=== PATIENT | female | born 1975 | race Two or more races ===

== ENCOUNTER 2022-01-12 13:15 | Inpatient (IN) | payer SELFPAY ==
[2022-01-12] MEDS ORDERED: SODIUM CHLORIDE 1,000 ML IV STA (14:17)
[2022-01-12] MEDS ORDERED: METOCLOPRAMIDE HCL INJECTION 10 MG/2 ML VIAL IVPB ONE (14:17)
[2022-01-12] MEDS ORDERED: ACETAMINOPHEN 1000 MG/100 ML BAG IVPB ONE (14:17)
[2022-01-12] MEDS ORDERED: METOCLOPRAMIDE HCL INJECTION 10 MG/2 ML VIAL ONE (15:31)
[2022-01-12 16:52] LABS: BASO % 0.5 % (0-2.0); EOS % 0.4 % (0-4.5); HEMATOCRIT 37.9 % (32.4-45.2); HEMOGLOBIN 12.2 GM/dL (10.7-15.3); LYMPH % 24.9 % (8-40); MCH 27.5 pg (25.7-33.7); MCHC 32.2 g/dl (32.0-36.0); MEAN CELL VOLUME 85.4 fl (80-96); MEAN PLT VOLUME 8.3 fl (7.5-11.1); MONO % 4.6 % (3.8-10.2); NEUT % 69.6 % (42.8-82.8); PLATELET COUNT 283 10^3/uL (134-434); RBC 4.43 M/mm3 (3.60-5.2); RDW 13.8 % (11.6-15.6); WHITE BLOOD COUNT 9.2 K/mm3 (4.0-10.0)
[2022-01-12 16:59] LABS: INR 0.91 (0.83-1.09); PROTHROMBIN TIME (PATIENT) 10.5 SEC (9.7-13.0)
[2022-01-12 17:12] LABS: ALBUMIN 3.5 g/dl (3.4-5.0); BLOOD UREA NITROGEN 12.4 mg/dL (7-18)
[2022-01-12 17:15] LABS: CREATININE 0.6 mg/dL (0.55-1.3)
[2022-01-12 17:16] LABS: BILIRUBIN,TOTAL 0.3 mg/dL (0.2-1); TOT PROT 7.9 g/dl (6.4-8.2)
[2022-01-12 17:32] LABS: EPI CELLS 12 /uL (0-25.1); HYALINE CASTS 1 /uL (0-3.1); PH,URINE 5.5 (5.0-8.0); URINE APPEARANCE CLEAR; URINE BACTERIA 1166 /uL (0-1359); URINE BILIRUBIN NEGATIVE (NEGATIVE); URINE COLOR YELLOW; URINE GLUCOSE (UA) NEGATIVE (NEGATIVE); URINE KETONE NEGATIVE (NEGATIVE); URINE LEUK ESTERASE NEGATIVE (NEGATIVE); URINE NITRITE NEGATIVE (NEGATIVE); URINE PROTEIN 1+ (NEGATIVE); URINE RBC 5 /uL (0-23.9); URINE UROBILINOGEN 0.2 mg/dL (0.2-1.0); URINE WBC 11 /uL (0-25.8)
[2022-01-12] MEDS ORDERED: VALPROATE SODIUM 500 MG/5 ML VIAL IVPB ONE (20:21)
[2022-01-12] MEDS ORDERED: CEFTRIAXONE 1,000 MG in DEXTROSE 5%-WATER - 50 ML IVPB ONE (20:52)
[2022-01-12] MEDS ORDERED: VALPROATE SODIUM 500 MG/5 ML VIAL ONE (21:29)
[2022-01-12] MEDS ORDERED: CEFTRIAXONE 1 GM/50 ML BAG ONE (21:29)
[2022-01-13 06:18] LABS: BASO % 0.5 % (0-2.0); EOS % 0.8 % (0-4.5); HEMOGLOBIN 10.7 GM/dL (10.7-15.3); LYMPH % 38.8 % (8-40); MCH 27.6 pg (25.7-33.7); MCHC 32.3 g/dl (32.0-36.0); MEAN CELL VOLUME 85.5 fl (80-96); MEAN PLT VOLUME 7.7 fl (7.5-11.1); MONO % 5.5 % (3.8-10.2); NEUT % 54.4 % (42.8-82.8); PLATELET COUNT 221 10^3/uL (134-434); RBC 3.86 M/mm3 (3.60-5.2); RDW 13.5 % (11.6-15.6); WHITE BLOOD COUNT 7.9 K/mm3 (4.0-10.0)
[2022-01-13 06:38] LABS: BLOOD UREA NITROGEN 10.8 mg/dL (7-18); CALCIUM 8.2 mg/dL (8.5-10.1)
[2022-01-13 06:39] LABS: MAGNESIUM 1.5 mg/dL (1.8-2.4)
[2022-01-13 06:41] LABS: CREATININE 0.5 mg/dL (0.55-1.3); PHOSPHOROUS 3.2 mg/dL (2.5-4.9)
[2022-01-13 06:43] LABS: BILIRUBIN,TOTAL 0.2 mg/dL (0.2-1); TOT PROT 6.8 g/dl (6.4-8.2)
[2022-01-13] MEDS: INSULIN SLIDING SCALE (NOVOLOG) 1 VIAL SQ SCH ×4 (07:06→22:31)
[2022-01-13] MEDS ORDERED: LEVOTHYROXINE NA 25 MCG TABLET (FP) ONE (07:07)
[2022-01-13] MEDS: LEVOTHYROXINE NA 100 MCG TABLET (FP) PO SCH (07:09)
[2022-01-13] MEDS ORDERED: MAGNESIUM SULFATE IN WATER 2 GM/50 ML IVPB IVPB ONE (07:33)
[2022-01-13] MEDS ORDERED: MAGNESIUM 2GM/50ML STERILE WATER IVPB IVPB ONE (07:45)
[2022-01-13] MEDS ORDERED: MAGNESIUM SULF 50% (8.12 MEQ/2 ML-1 GM VIAL) IVPB ONE (07:45)
[2022-01-13] MEDS ORDERED: LISINOPRIL 5 MG TABLET ONE (08:38)
[2022-01-13] MEDS ORDERED: ASPIRIN COATED 81 MG TABLET.EC ONE (08:38)
[2022-01-13] MEDS: LISINOPRIL 5 MG TABLET PO SCH (09:16)
[2022-01-13] MEDS: ASPIRIN COATED 81 MG TABLET.EC PO SCH (09:16)
[2022-01-13] MEDS: DIVALPROEX SODIUM 500 MG TABLET E.C. PO SCH (09:34)
[2022-01-13] MEDS ORDERED: ENOXAPARIN NA (PORCINE) 40 MG/0.4 ML DISP.SYRIN SQ SCH (10:00)
[2022-01-13 11:10] LABS: RETICULOCYTES 1.14 % (0.5-1.5)
[2022-01-13] MEDS ORDERED: GEMFIBROZIL 600 MG TABLET (FP) PO SCH (16:30)
[2022-01-13 18:54] VITALS: BMI 31.8
[2022-01-13] MEDS: CLOPIDOGREL BISULFATE 75 MG TABLET (FP) PO SCH (19:00)
[2022-01-13] MEDS ORDERED: ATORVASTATIN CA 40 MG TABLET (FP) PO SCH ×2 (22:00)
[2022-01-13] MEDS: ATORVASTATIN CA 80 MG TABLET (FP) PO SCH (22:31)
[2022-01-13] MEDS: PRAMIPEXOLE DIHYDROCHLORIDE 0.25 MG TABLET PO SCH (22:31)
[2022-01-14] MEDS: LEVOTHYROXINE NA 100 MCG TABLET (FP) PO SCH (06:16)
[2022-01-14 07:39] LABS: BASO % 0.4 % (0-2.0); EOS % 1.2 % (0-4.5); HEMATOCRIT 35.8 % (32.4-45.2); HEMOGLOBIN 11.7 GM/dL (10.7-15.3); LYMPH % 40.7 % (8-40); MCH 27.9 pg (25.7-33.7); MCHC 32.8 g/dl (32.0-36.0); MEAN CELL VOLUME 85.1 fl (80-96); MEAN PLT VOLUME 7.8 fl (7.5-11.1); MONO % 5.9 % (3.8-10.2); NEUT % 51.8 % (42.8-82.8); PLATELET COUNT 253 10^3/uL (134-434); RDW 13.4 % (11.6-15.6); WHITE BLOOD COUNT 8.4 K/mm3 (4.0-10.0)
[2022-01-14 07:56] LABS: BLOOD UREA NITROGEN 14.8 mg/dL (7-18); MAGNESIUM 2.5 mg/dL (1.8-2.4)
[2022-01-14 08:00] LABS: CREATININE 0.6 mg/dL (0.55-1.3); PHOSPHOROUS 4.9 mg/dL (2.5-4.9)
[2022-01-14] MEDS: INSULIN SLIDING SCALE (NOVOLOG) 1 VIAL SQ SCH ×3 (08:51→16:54)
[2022-01-14] MEDS: CLOPIDOGREL BISULFATE 75 MG TABLET (FP) PO SCH (10:23)
[2022-01-14] MEDS: ASPIRIN COATED 81 MG TABLET.EC PO SCH (10:23)
[2022-01-14] MEDS: LISINOPRIL 5 MG TABLET PO SCH (10:23)
[2022-01-14] MEDS: DIVALPROEX SODIUM 500 MG TABLET E.C. PO SCH (11:09)
[2022-01-14] MEDS: PRAMIPEXOLE DIHYDROCHLORIDE 0.25 MG TABLET PO SCH (22:27)
[2022-01-14] MEDS: ACETAMINOPHEN 325 MG TABLET (FP) PO PRN (22:27)
[2022-01-14] MEDS: ATORVASTATIN CA 80 MG TABLET (FP) PO SCH (22:30)
[2022-01-15] MEDS: LEVOTHYROXINE NA 100 MCG TABLET (FP) PO SCH (06:03)
[2022-01-15] MEDS: INSULIN SLIDING SCALE (NOVOLOG) 1 VIAL SQ SCH ×5 (06:13→21:50)
[2022-01-15 07:11] LABS: BASO % 0.6 % (0-2.0); EOS % 1.3 % (0-4.5); HEMATOCRIT 34.3 % (32.4-45.2); HEMOGLOBIN 11.6 GM/dL (10.7-15.3); LYMPH % 36.9 % (8-40); MCH 28.8 pg (25.7-33.7); MCHC 33.9 g/dl (32.0-36.0); MEAN CELL VOLUME 84.8 fl (80-96); MEAN PLT VOLUME 7.3 fl (7.5-11.1); MONO % 5.4 % (3.8-10.2); NEUT % 55.8 % (42.8-82.8); PLATELET COUNT 235 10^3/uL (134-434); RBC 4.05 M/mm3 (3.60-5.2); RDW 13.5 % (11.6-15.6); WHITE BLOOD COUNT 7.8 K/mm3 (4.0-10.0)
[2022-01-15 07:26] LABS: CALCIUM 8.8 mg/dL (8.5-10.1)
[2022-01-15 07:31] LABS: CREATININE 0.5 mg/dL (0.55-1.3)
[2022-01-15] MEDS: LISINOPRIL 5 MG TABLET PO SCH (09:54)
[2022-01-15] MEDS: ASPIRIN COATED 81 MG TABLET.EC PO SCH (09:55)
[2022-01-15] MEDS: DIVALPROEX SODIUM 500 MG TABLET E.C. PO SCH (09:55)
[2022-01-15] MEDS: CLOPIDOGREL BISULFATE 75 MG TABLET (FP) PO SCH (09:55)
[2022-01-15] MEDS: ACETAMINOPHEN 325 MG TABLET (FP) PO PRN (15:37)
[2022-01-15] MEDS: PRAMIPEXOLE DIHYDROCHLORIDE 0.25 MG TABLET PO SCH (21:50)
[2022-01-15] MEDS: ATORVASTATIN CA 80 MG TABLET (FP) PO SCH (21:50)
[2022-01-16] MEDS: LEVOTHYROXINE NA 100 MCG TABLET (FP) PO SCH (06:15)
[2022-01-16] MEDS: INSULIN SLIDING SCALE (NOVOLOG) 1 VIAL SQ SCH ×4 (06:16→21:55)
[2022-01-16] MEDS: CLOPIDOGREL BISULFATE 75 MG TABLET (FP) PO SCH (10:03)
[2022-01-16] MEDS: ASPIRIN COATED 81 MG TABLET.EC PO SCH (10:03)
[2022-01-16] MEDS: DIVALPROEX SODIUM 500 MG TABLET E.C. PO SCH (10:03)
[2022-01-16] MEDS: LISINOPRIL 5 MG TABLET PO SCH (10:03)
[2022-01-16 13:08] LABS: BASO % 0.5 % (0-2.0); EOS % 1.3 % (0-4.5); HEMATOCRIT 35.4 % (32.4-45.2); LYMPH % 28.8 % (8-40); MCH 28.7 pg (25.7-33.7); MCHC 33.8 g/dl (32.0-36.0); MEAN PLT VOLUME 7.6 fl (7.5-11.1); MONO % 6.6 % (3.8-10.2); NEUT % 62.8 % (42.8-82.8); PLATELET COUNT 258 10^3/uL (134-434); RBC 4.16 M/mm3 (3.60-5.2); RDW 13.1 % (11.6-15.6)
[2022-01-16 13:20] LABS: CALCIUM 9.8 mg/dL (8.5-10.1)
[2022-01-16 13:21] LABS: BLOOD UREA NITROGEN 14.6 mg/dL (7-18)
[2022-01-16 13:24] LABS: CREATININE 0.5 mg/dL (0.55-1.3)
[2022-01-16] MEDS: PRAMIPEXOLE DIHYDROCHLORIDE 0.25 MG TABLET PO SCH (21:47)
[2022-01-16] MEDS: ACETAMINOPHEN 325 MG TABLET (FP) PO PRN (21:48)
[2022-01-16] MEDS: ATORVASTATIN CA 80 MG TABLET (FP) PO SCH (21:48)
[2022-01-16] MEDS: MELATONIN 5 MG TABLETS PO PRN (21:48)
[2022-01-17] MEDS: LEVOTHYROXINE NA 100 MCG TABLET (FP) PO SCH (06:08)
[2022-01-17] MEDS: INSULIN SLIDING SCALE (NOVOLOG) 1 VIAL SQ SCH ×4 (06:09→22:07)
[2022-01-17] MEDS: DIVALPROEX SODIUM 500 MG TABLET E.C. PO SCH (10:27)
[2022-01-17] MEDS: ASPIRIN COATED 81 MG TABLET.EC PO SCH (10:27)
[2022-01-17] MEDS: LISINOPRIL 5 MG TABLET PO SCH (10:27)
[2022-01-17] MEDS: CLOPIDOGREL BISULFATE 75 MG TABLET (FP) PO SCH (10:28)
[2022-01-17] MEDS: ATORVASTATIN CA 80 MG TABLET (FP) PO SCH (22:04)
[2022-01-17] MEDS: PRAMIPEXOLE DIHYDROCHLORIDE 0.25 MG TABLET PO SCH (22:04)
[2022-01-18] MEDS: INSULIN SLIDING SCALE (NOVOLOG) 1 VIAL SQ SCH ×4 (06:03→21:28)
[2022-01-18] MEDS: LEVOTHYROXINE NA 100 MCG TABLET (FP) PO SCH (06:05)
[2022-01-18 07:22] LABS: BASO % 0.5 % (0-2.0); EOS % 1.7 % (0-4.5); HEMATOCRIT 32.8 % (32.4-45.2); HEMOGLOBIN 10.8 GM/dL (10.7-15.3); LYMPH % 31.3 % (8-40); MCHC 32.8 g/dl (32.0-36.0); MEAN CELL VOLUME 85.3 fl (80-96); MONO % 5.8 % (3.8-10.2); NEUT % 60.7 % (42.8-82.8); PLATELET COUNT 241 10^3/uL (134-434); RBC 3.84 M/mm3 (3.60-5.2); RDW 13.2 % (11.6-15.6); WHITE BLOOD COUNT 8.3 K/mm3 (4.0-10.0)
[2022-01-18 07:42] LABS: CALCIUM 8.8 mg/dL (8.5-10.1)
[2022-01-18 07:43] LABS: BLOOD UREA NITROGEN 15.2 mg/dL (7-18); MAGNESIUM 1.9 mg/dL (1.8-2.4)
[2022-01-18 07:46] LABS: CREATININE 0.5 mg/dL (0.55-1.3)
[2022-01-18] MEDS: DIVALPROEX SODIUM 500 MG TABLET E.C. PO SCH (09:18)
[2022-01-18] MEDS: ASPIRIN COATED 81 MG TABLET.EC PO SCH (09:18)
[2022-01-18] MEDS: CLOPIDOGREL BISULFATE 75 MG TABLET (FP) PO SCH (09:19)
[2022-01-18] MEDS: LISINOPRIL 5 MG TABLET PO SCH (09:19)
[2022-01-18] MEDS: predniSONE 20 MG TABLET (UD) PO SCH (15:55)
[2022-01-18] MEDS: ATORVASTATIN CA 80 MG TABLET (FP) PO SCH (21:23)
[2022-01-18] MEDS: PRAMIPEXOLE DIHYDROCHLORIDE 0.25 MG TABLET PO SCH (21:23)
[2022-01-18] MEDS: PANTOPRAZOLE 40 MG TABLET PO SCH (21:23)
[2022-01-19] MEDS: LEVOTHYROXINE NA 100 MCG TABLET (FP) PO SCH (06:29)
[2022-01-19] MEDS: INSULIN SLIDING SCALE (NOVOLOG) 1 VIAL SQ SCH ×4 (06:32→21:41)
[2022-01-19 07:39] LABS: BASO % 0.5 % (0-2.0); HEMATOCRIT 31.6 % (32.4-45.2); HEMOGLOBIN 10.6 GM/dL (10.7-15.3); LYMPH % 12.7 % (8-40); MCH 28.4 pg (25.7-33.7); MCHC 33.7 g/dl (32.0-36.0); MEAN CELL VOLUME 84.4 fl (80-96); MEAN PLT VOLUME 8.3 fl (7.5-11.1); MONO % 3.3 % (3.8-10.2); NEUT % 83.5 % (42.8-82.8); PLATELET COUNT 246 10^3/uL (134-434); RBC 3.74 M/mm3 (3.60-5.2); RDW 13.2 % (11.6-15.6); WHITE BLOOD COUNT 10.2 K/mm3 (4.0-10.0)
[2022-01-19 07:50] LABS: BLOOD UREA NITROGEN 16.4 mg/dL (7-18); CALCIUM 8.1 mg/dL (8.5-10.1)
[2022-01-19 07:53] LABS: CREATININE 0.6 mg/dL (0.55-1.3)
[2022-01-19] MEDS: predniSONE 20 MG TABLET (UD) PO SCH (09:53)
[2022-01-19] MEDS: DIVALPROEX SODIUM 500 MG TABLET E.C. PO SCH (09:53)
[2022-01-19] MEDS: CLOPIDOGREL BISULFATE 75 MG TABLET (FP) PO SCH (09:54)
[2022-01-19] MEDS: PANTOPRAZOLE 40 MG TABLET PO SCH ×2 (09:54→21:35)
[2022-01-19] MEDS: ASPIRIN COATED 81 MG TABLET.EC PO SCH (09:54)
[2022-01-19] MEDS: LISINOPRIL 5 MG TABLET PO SCH (09:54)
[2022-01-19] MEDS ORDERED: LIDOCAINE HCL 1%, 10 MG/ML (20ML VIAL) ONE (13:09)
[2022-01-19] MEDS ORDERED: LIDOCAINE HCL 1%, 10 MG/ML (20ML VIAL) SQ ONE (13:55)
[2022-01-19] MEDS: ACETAMINOPHEN 325 MG TABLET (FP) PO PRN (20:02)
[2022-01-19] MEDS: PRAMIPEXOLE DIHYDROCHLORIDE 0.25 MG TABLET PO SCH (21:35)
[2022-01-19] MEDS: MELATONIN 5 MG TABLETS PO PRN (21:35)
[2022-01-19] MEDS: ATORVASTATIN CA 80 MG TABLET (FP) PO SCH (21:35)
[2022-01-20] MEDS: LEVOTHYROXINE NA 100 MCG TABLET (FP) PO SCH (06:23)
[2022-01-20] MEDS: INSULIN SLIDING SCALE (NOVOLOG) 1 VIAL SQ SCH ×2 (06:23→11:33)
[2022-01-20 07:44] LABS: BASO % 0.3 % (0-2.0); EOS % 0.1 % (0-4.5); HEMATOCRIT 30.5 % (32.4-45.2); HEMOGLOBIN 10.5 GM/dL (10.7-15.3); LYMPH % 19.2 % (8-40); MCH 28.7 pg (25.7-33.7); MCHC 34.3 g/dl (32.0-36.0); MEAN CELL VOLUME 83.8 fl (80-96); MEAN PLT VOLUME 7.8 fl (7.5-11.1); MONO % 5.6 % (3.8-10.2); NEUT % 74.8 % (42.8-82.8); PLATELET COUNT 249 10^3/uL (134-434); RBC 3.64 M/mm3 (3.60-5.2); RDW 13.7 % (11.6-15.6); WHITE BLOOD COUNT 11.6 K/mm3 (4.0-10.0)
[2022-01-20 08:03] LABS: CALCIUM 8.2 mg/dL (8.5-10.1)
[2022-01-20 08:04] LABS: BLOOD UREA NITROGEN 20.3 mg/dL (7-18)
[2022-01-20 08:06] LABS: CREATININE 0.6 mg/dL (0.55-1.3)
[2022-01-20] MEDS: PANTOPRAZOLE 40 MG TABLET PO SCH (10:52)
[2022-01-20] MEDS: DIVALPROEX SODIUM 500 MG TABLET E.C. PO SCH (10:52)
[2022-01-20] MEDS: ASPIRIN COATED 81 MG TABLET.EC PO SCH (10:52)
[2022-01-20] MEDS: LISINOPRIL 5 MG TABLET PO SCH (10:52)
[2022-01-20] MEDS: CLOPIDOGREL BISULFATE 75 MG TABLET (FP) PO SCH (10:52)
[2022-01-20 15:06] VITALS: BP 116/69; PULSE 86; TEMP 98.3
== END 2022-01-20 17:56 | disposition home or self-care (01) | DRG 46 ==
LOC: JER 13:15 → JERBED 21:31 → J4W 01-13 15:38
PROVIDERS: ADMIT Hospitalist; ATTEND Internal Medicine
PROC: 03BS3ZX Excision of Right Temporal Artery, Percutaneous Approach, Diagnostic (ICD-10-PCS; principal; 2022-01-19 14:00)
DX: I65.21 Occlusion and stenosis of right carotid artery (principal); Q24.8 Other specified congenital malformations of heart; I10 Essential (primary) hypertension; E03.9 Hypothyroidism, unspecified; G25.81 Restless legs syndrome; H53.2 Diplopia; I69.30 Unspecified sequelae of cerebral infarction; E11.9 Type 2 diabetes mellitus without complications; I11.0 Hypertensive heart disease with heart failure; I50.32 Chronic diastolic (congestive) heart failure; F41.9 Anxiety disorder, unspecified; R00.0 Tachycardia, unspecified; E78.5 Hyperlipidemia, unspecified; E66.9 Obesity, unspecified; Z68.31 Body mass index [BMI] 31.0-31.9, adult
CPT/HCPCS: 36415; 70450-TC; 70496-TC; 70498-TC; 70546-TC; 70548-TC; 80048; 80053; 80061; 81003; 82136; 82272; 82570; 82962; 83010; 83036; 83735; 83918; 84100; 84156; 84443; 84484; 85025; 85045; 85610; 85651; 86140; 87086; 88305-TC; 93005; 93010; 93306-TC; 93880-TC; 97116-GP; 97162-GP; 99285-25; A9579; C9803; Q9967; U0003; U0005

== ENCOUNTER 2022-12-08 07:12 | Emergency (ER) | payer SELFPAY ==
[2022-12-08 07:29] VITALS: BMI 28.3
[2022-12-08] MEDS ORDERED: METOCLOPRAMIDE HCL INJECTION 10 MG/2 ML VIAL IVPUSH ONE (07:50)
[2022-12-08] MEDS ORDERED: ACETAMINOPHEN 1000 MG/100 ML BAG IVPB ONE (07:50)
[2022-12-08] MEDS ORDERED: SODIUM CHLORIDE 0.9% 500 ML INFUS.BAG IV ONE (07:51)
[2022-12-08] MEDS ORDERED: METOCLOPRAMIDE HCL INJECTION 10 MG/2 ML VIAL ONE (08:17)
[2022-12-08] MEDS ORDERED: ACETAMINOPHEN INJECTION 100 ML IVPB ONE (08:17)
[2022-12-08 08:58] LABS: BASO % 0.3 % (0-2.0); EOS % 0.8 % (0-4.5); HEMATOCRIT 29.6 % (32.4-45.2); HEMOGLOBIN 9.7 GM/dL (10.7-15.3); LYMPH % 20.7 % (8-40); MCH 28.4 pg (25.7-33.7); MCHC 32.8 g/dl (32.0-36.0); MEAN CELL VOLUME 86.4 fl (80-96); MEAN PLT VOLUME 8.6 fl (7.5-11.1); MONO % 6.7 % (3.8-10.2); NEUT % 71.5 % (42.8-82.8); PLATELET COUNT 298 10^3/uL (134-434); RBC 3.42 M/mm3 (3.60-5.2); RDW 14.4 % (11.6-15.6); WHITE BLOOD COUNT 11.3 K/mm3 (4.0-10.0)
[2022-12-08 09:07] LABS: INR 0.95 (0.83-1.09); PROTHROMBIN TIME (PATIENT) 10.9 SEC (9.7-13.0)
[2022-12-08 09:10] LABS: ACTIVATED PTT 31.1 SECONDS (25.2-36.5)
[2022-12-08 09:27] LABS: BLOOD UREA NITROGEN 23.5 mg/dL (7-18); CALCIUM 8.3 mg/dL (8.5-10.1)
[2022-12-08 09:30] LABS: CREATININE 0.8 mg/dL (0.55-1.3)
[2022-12-08 09:32] LABS: BILIRUBIN,TOTAL 0.2 mg/dL (0.2-1); TOT PROT 6.5 g/dl (6.4-8.2)
[2022-12-08] MEDS ORDERED: LACTATED RINGERS SOLUTION 1000 ML INFUS.BAG IV ONE (09:56)
[2022-12-08] MEDS ORDERED: CLOPIDOGREL BISULFATE 75 MG TABLET (FP) PO ONE (09:56)
[2022-12-08] MEDS ORDERED: CLOPIDOGREL BISULFATE 75 MG TABLET (FP) ONE (10:36)
[2022-12-08] MEDS ORDERED: DIVALPROEX NA *ER* EXTEND REL 500 MG TABLET.SA (FP) PO ONE (11:19)
[2022-12-08] MEDS ORDERED: RIMEGEPANT SULFATE 75 MG TAB.RAPDIS SL ONE (11:24)
[2022-12-08 13:49] LABS: EPI CELLS 32 /uL (0-25.1); HYALINE CASTS 1 /uL (0-3.1); PH,URINE 6.5 (5.0-8.0); URINE APPEARANCE CLOUDY; URINE BACTERIA >9,000 /uL (0-1359); URINE BILIRUBIN NEGATIVE (NEGATIVE); URINE COLOR YELLOW; URINE GLUCOSE (UA) NEGATIVE (NEGATIVE); URINE KETONE NEGATIVE (NEGATIVE); URINE LEUK ESTERASE 2+ (NEGATIVE); URINE NITRITE POSITIVE (NEGATIVE); URINE PROTEIN NEGATIVE (NEGATIVE); URINE RBC 30 /uL (0-23.9); URINE UROBILINOGEN 0.2 mg/dL (0.2-1.0); URINE WBC 1141 /uL (0-25.8)
[2022-12-08] MEDS ORDERED: CEFTRIAXONE 1,000 MG in DEXTROSE 5%-WATER - 50 ML IVPB ONE (14:14)
[2022-12-08] MEDS ORDERED: CEFTRIAXONE 2 GM/100 ML BAG IVPB ONE (14:57)
[2022-12-08 15:41] VITALS: BP 123/75; PULSE 92; RESP 18; TEMP 98
== END 2022-12-08 15:42 | disposition home or self-care (01) ==
LOC: JER 07:12
PROC: 3E033GC Introduction of Other Therapeutic Substance into Peripheral Vein, Percutaneous Approach (ICD-10-PCS; principal; 2022-12-08)
DX: G43.909 Migraine, unspecified, not intractable, without status migrainosus (principal); N39.0 Urinary tract infection, site not specified
CPT/HCPCS: 0241U-QW; 36415; 70450-TC; 80053; 80061; 81003; 83036; 84484; 85025; 85610; 85730; 86850; 86900; 86901; 93005; 93010; 93880-TC; 99285-25